=== PATIENT | female | born 1965 | race Caucasian/White ===

== ENCOUNTER → 2019-05-07 07:05 | Outpatient (CLI) | payer MEDICARE, SELFPAY ==
[2019-05-07 08:08] LABS: Hematocrit 43.8 % (36-46); Hemoglobin 14.7 g/dL (12.0-16.0); Mean Corpuscular HGB Conc 33.6 % (30-36); Mean Corpuscular Hemoglobin 34.2 PG (26-34); Mean Corpuscular Volume 101.8 fL (80-100); Platelet Count 186 X10^3/uL (150-400); Red Blood Cell Count 4.31 X10^6/uL (4.0-5.2); Red Cell Distribution Width 13.5 % (11.6-14.8); White Blood Cell Count 4.1 X10^3/uL (4.5-11.0)
[2019-05-07 08:17] LABS: Albumin 3.8 g/dL (3.5-5.0); Albumin Globulin Ratio 1.1 (1.0-2.8); Alkaline Phosphatase 84 U/L (38-126); Aspartate Aminotransferase 34 IU/L (14-36); BUN Creatinine Ratio 22.5 (6-22); Bilirubin Total 0.5 mg/dL (0.2-1.3); Blood Urea Nitrogen 18 mg/dL (7-17); Calcium 9.3 mg/dL (8.4-10.2); Carbon Dioxide 32 mmol/L (22-32); Chloride 104 mmol/L (98-107); Cholesterol 195 mg/dL (140-199); Estimated Glomerular Filt Rate > 60.0 mL/min (>60); Globulin 3.6 g/dL (1.7-4.1); Glucose 92 mg/dL (70-100); HDL Cholesterol 51 mg/dL (40-60); HEMOLYSIS 17 (0-50); LDL Cholesterol Calculated 134 mg/dL (<100); Potassium 4.2 mmol/L (3.4-5.1); Sodium 142 mmol/L (137-145); Total Protein 7.4 g/dL (6.3-8.2); Triglycerides 52 mg/dL (35-150)
[2019-05-07 08:33] LABS: Alanine Aminotransferase 7 IU/L (9-52)
[2019-05-07 08:46] LABS: Thyroid Stimulating Hormone 0.57 uIU/mL (0.47-4.68)
== END ==
PROVIDERS: PCP Nurse Practitioner; Visit Provider Nurse Practitioner
DX: E03.9 Hypothyroidism, unspecified (principal)
CPT/HCPCS: 36415; 80053; 80061; 84443; 85027